=== PATIENT | male | born 1990 | race Hispanic/Latino ===

== ENCOUNTER 2017-02-28 09:26 | Observation (INO) | payer SELFPAY ==
[2017-02-28 09:32] VITALS: BMI 25.7
[2017-02-28] MEDS ORDERED: Sodium Chloride 0.9% 1,000 ML IV STA (10:28)
--- NOTE | 2017-02-28 10:50 | ED PDOC ---
HPI: General Adult Time Seen by Provider: 02/28/17 10:05 Chief Complaint (Nursing): Flu-like Symptoms History Per: Patient Additional Complaint(s): Pt. states since Sunday he's had a worsening cough productive associated with a gradual onset R sided headache. Reports headache is associated with nausea and non-bloody vomiting and light sensitivity. Also reports noticing atraumatic brusing on his stomach which is also not painful. Denies recent travel, sick contacts, sore throat, abdominal pain, head injury. Pt. was seen earlier today in [facility] but instructed to come to ED due to negative CXR and flu test. Also states he has been vaccinated for meningitis before. Past Medical History Reviewed: Historical Data, Nursing Documentation, Vital Signs Vital Signs: Last Vital Signs Temp 100.2 F H 02/28/17 12:20 Pulse 83 02/28/17 13:00 Resp 16 02/28/17 13:00 BP 113/63 02/28/17 13:00 Pulse Ox 97 02/28/17 15:04 - Surgical History Surgical History: Appendectomy - Family History Family History: Denies: CAD - Allergies Allergies/Adverse Reactions: Allergies Allergy/AdvReac Type Severity Reaction Status Date / Time No Known Allergies Allergy Verified 05/29/15 21:32 Review of Systems ROS Statement: Except As Marked, All Systems Reviewed And Found Negative Constitutional: Positive for: Fever Respiratory: Positive for: Cough Neurological: Positive for: Headache Physical Exam - Reviewed Nursing Documentation Reviewed: Yes Vital Signs Reviewed: Yes - Physical Exam Appears: Positive for: Well, Non-toxic, No Acute Distress Head Exam: Positive for: ATRAUMATIC, NORMAL INSPECTION, NORMOCEPHALIC Skin: Positive for: Normal Color, Warm. Negative for: Rash Eye Exam: Positive for: EOMI, Normal appearance, PERRL ENT: Positive for: Normal ENT Inspection Neck: Positive for: Normal, Painless ROM Cardiovascular/Chest: Positive for: Regular Rate, Rhythm Respiratory: Positive for: CNT, Normal Breath Sounds Gastrointestinal/Abdominal: Positive for: Normal Exam, Bowel Sounds, Soft, Other (minimal ecchymosis to RUQ). Negative for: Tenderness (to deep palpation) Back: Positive for: Normal Inspection Extremity: Positive for: Normal ROM Neurologic/Psych: Positive for: Alert, Oriented, Other (negative kernig's and brudzinski's test). Negative for: Aphasia, Facial Droop - Laboratory Results Result Diagrams: 02/28/17 10:57 02/28/17 10:57 - ECG O2 Sat by Pulse Oximetry: 97 Procedures - Time-Out Type of Procedure: Lumbar Puncture Site of Procedure: Lumbar area Correct Patient (with visual ID + MR# on ID Band): Yes Correct Procedure: Yes Correct Site Marked: Yes PA/Tech: Nathaniel ST - Additional Procedures Additional Procedures: lumbar puncture Progress: Lumbar puncture was performed under sterile procedures by Dr. Zaman and Nathaniel ST without incident. Initial fluid return was blood tinged likely due to trauma. Patient tolerated procedure well without incident. ED OBSERVATION Discharge: Yes Date of observation admission: 02/28/17 Time of observation admission: 10:51 - Observation admission statement Patient is being placed in observation because:: fever, headache - Progress Note Progress Note: 02/28/17 10:51 Case d/w Dr. Zaman. Pt. placed on isolation. Labs ordered. CT head w/o contrast ordered. Toradol 15mg IV, zofran 4mg IV, Tylenol 975mg PO given. 02/28/17 11:[address] Zaman. CXR: NAD CT head w/o contrast: negative 02/28/17 12:47 Dr. Zaman and la performed lumbar puncture without incident. Pt. tolerated procedure well. Pt. still c/o headache. 02/28/17 15:03 Dr. Zaman re-evaluated pt. and informed him of results. Still c/o headache. 02/28/17 15:15 Pt. offered 23 hr observation but prefers to go home. States he will return to ED if symptoms worsen or do not improve. Disposition d/w Dr. Zaman who agrees. Disposition - Clinical Impression Clinical Impression: Headache, Viral syndrome - Patient ED Disposition Is Patient to be Admitted: No - Disposition Disposition: Routine/Home Disposition Time: 15:18 Condition: STABLE
[2017-02-28 11:02] LABS: BASO % 0.4 % (0.0-2.0); EOS % 0.1 % (0.0-4.0); HEMOGLOBIN 13.2 g/dL (12.0-18.0); LYMPH # 1.2 K/uL (1.0-4.3); MEAN CORPUSCULAR HEMOGLOBIN 30.7 pg (27.0-31.0); MEAN CORPUSCULAR HGB CONC 33.7 g/dL (33.0-37.0); MEAN PLATELET VOLUME 8.8 fl (7.2-11.7); MONO # 1.7 K/uL (0.0-0.8); MONO % 12.4 % (0.0-10.0); NEUT # 10.5 K/uL (1.8-7.0); NEUT % 78.1 % (50.0-75.0); PLATELET COUNT 210 K/uL (130-400); RBC 4.31 Mil/uL (4.40-5.90); RED CELL DISTRIBUTION WIDTH 14.1 % (11.5-14.5); WHITE BLOOD COUNT 13.4 K/uL (4.8-10.8)
--- NOTE | 2017-02-28 11:03 | CT ---
PROCEDURE: CT HEAD WITHOUT CONTRAST. HISTORY: headache COMPARISON: None available. TECHNIQUE: Axial computed tomography images were obtained through the head/brain without intravenous contrast. Radiation dose: Total exam DLP = 881.34 MGy-cm. This CT exam was performed using one or more of the following dose reduction techniques: Automated exposure control, adjustment of the mA and/or kV according to patient size, and/or use of iterative reconstruction technique. FINDINGS: HEMORRHAGE: No intracranial hemorrhage. BRAIN: Leonardo-white matter differentiation is preserved. There is no mass, mass effect or abnormal extra-axial fluid collection. . VENTRICLES: The ventricles are normal in size, shape and configuration. CALVARIUM: The skull base and calvarium are normal. PARANASAL SINUSES: Predominantly clear. MASTOID AIR CELLS: Predominantly clear. OTHER FINDINGS: None. IMPRESSION: No acute intracranial abnormality.
[2017-02-28 11:12] LABS: ALB/GLOB RATIO 1.4 (1.0-2.1); ALBUMIN 4.6 g/dL (3.5-5.0); ALT/SGPT 55 U/L (21-72); AST/SGOT 32 U/L (17-59); BLOOD UREA NITROGEN 11 mg/dl (9-20); CALCIUM 9.4 mg/dL (8.4-10.2); GFR AFRICAN-AMERICAN > 60; GFR NON-AFRICAN AMERICAN > 60
[2017-02-28 11:14] LABS: VENOUS BLOOD GAS BASE EXCESS 3.5 mmol/L (0.0-2.0); VENOUS BLOOD GAS PCO2 40 mmHg (40-60); VENOUS BLOOD GAS PO2 24 mm/Hg (30-55); VENOUS BLOOD PH 7.45 (7.32-7.43)
[2017-02-28 11:23] LABS: INR 1.3 (0.9-1.2); PARTIAL THROMBOPLASTIN TIME 28.4 Seconds (25.6-37.1); PROTHROMBIN TIME 13.5 Seconds (9.8-13.1)
[2017-02-28 11:40] LABS: BANDS 1 % (0-2); BASOPHIL 1 % (0-2); LYMPHOCYTE 8 % (20-50); MONOCYTE 8 % (0-10); NEUTROPHIL 82 % (42-75); TOTAL CELLS COUNTED 100
[2017-02-28 11:41] LABS: PLATELET ESTIMATE NORMAL (NORMAL)
--- NOTE | 2017-02-28 11:46 | RAD ---
HISTORY: cough COMPARISON: 05/29/2015. FINDINGS: LUNGS: The lungs are well inflated and clear. PLEURA: No significant pleural effusion identified, no pneumothorax apparent. CARDIOVASCULAR: Normal. OSSEOUS STRUCTURES: No significant abnormalities. VISUALIZED UPPER ABDOMEN: Normal. OTHER FINDINGS: None. IMPRESSION: No active pulmonary disease.
[2017-02-28] MEDS ORDERED: cefTRIAXone 2 GM in Sodium Chloride 0.9% 100 ML IVPB SCH (13:00)
[2017-02-28 13:01] VITALS: RESP 16
[2017-02-28 13:19] LABS: FLUID TYPE SPINAL FLUID
[2017-02-28 13:26] LABS: CSF APPEARANCE CLEAR/COLORLESS (CLEAR)
[2017-02-28 13:28] LABS: CSF VOLUME 1 mL (0-1)
[2017-02-28 15:41] VITALS: BP 110/62; PULSE 89; TEMP 99.2; O2SAT 99
[2017-03-02 11:25] LABS: HSV 1 DNA Not Detected (Not Detected); HSV 2 DNA Not Detected (Not Detected); SPECIMEN SOURCE CSF
== END 2017-02-28 15:42 | disposition home or self-care (01) ==
LOC: H.ER 09:26 → H.EROBSV 10:28
PROVIDERS: ADMIT Emergency Medicine; ATTEND Emergency Medicine
DX: B34.9 Viral infection, unspecified (principal)
CPT/HCPCS: 62272; 70450; 71010; 80053; 82803; 82945; 84157; 85025; 85610; 85730; 86592; 86850; 86900; 87040; 87070; 87430; 87529; 87804; 89050; 96374; 96375; 99284; G0378; J0696; J1885; J2270; J2405; J7040

== ENCOUNTER 2017-03-01 07:48 | Observation (INO) | payer SELFPAY ==
[2017-03-01 07:48] VITALS: BMI 25.7
[2017-03-01 08:04] VITALS: RESP 16
[2017-03-01] MEDS ORDERED: Sodium Chloride 0.9% 1,000 ML IV STA (08:07)
--- NOTE | 2017-03-01 08:27 | ED PDOC ---
HPI: Headache Time Seen by Provider: 03/01/17 08:03 Chief Complaint (Nursing): Chest Pain Chief Complaint (Provider): Headache, Fever, Vomiting History Per: Patient History/Exam Limitations: no limitations Onset/Duration Of Symptoms: Days (x 4) Current Symptoms Are (Timing): Still Present Additional Complaint(s): Mahamed is a 26 y/o male who was well prior to Sunday morning but around 11AM developed fever, chills, nausea, headache, and fatigue. Went to urgent care, then sent to ED, was worked up in ED including lumbar puncture. Patient was discharged and states overnight symptoms have persisted and now worsened with headache, diarrhea, vomiting, and dizziness. Sunday he went to Urgent Care before coming to hospital. Currently taking Reglan and Naprosyn without relief. Denies sick contacts. No foreign travel. Patient lives with girlfriend who is not sick. Patient denies foreign travel, drug use, wooded or insect exposure. PMD: Unknown Past Medical History Reviewed: Historical Data, Nursing Documentation, Vital Signs Vital Signs: Last Vital Signs Temp 97 F L 03/01/17 07:58 Pulse 76 03/01/17 07:58 Resp 16 03/01/17 07:58 BP 110/53 L 03/01/17 07:58 Pulse Ox 99 03/01/17 07:58 - Medical History PMH: No Chronic Diseases - Surgical History Surgical History: Appendectomy - Family History Family History: Denies: CAD - Social History Current smoker - smoking cessation education provided: No Alcohol: Social Drugs: Denies - Home Medications Home Medications: Ambulatory Orders Medication Instructions Recorded Ondansetron [Zofran Tab] 4 mg PO Q6 PRN #20 tab 03/01/17 SUMAtriptan succinate [Imitrex Tab] 100 mg PO DAILY #5 tab 03/01/17 traMADol [Ultram] 50 mg PO Q6 PRN #10 tab 03/01/17 - Allergies Allergies/Adverse Reactions: Allergies Allergy/AdvReac Type Severity Reaction Status Date / Time No Known Allergies Allergy Verified 05/29/15 21:32 Review of Systems ROS Statement: Except As Marked, All Systems Reviewed And Found Negative Constitutional: Positive for: Fever, Chills, Weakness Gastrointestinal: Positive for: Nausea, Vomiting, Diarrhea Neurological: Positive for: Headache Physical Exam - Reviewed Nursing Documentation Reviewed: Yes Vital Signs Reviewed: Yes - Physical Exam Appears: Positive for: Non-toxic, No Acute Distress (Mildly dehydrated appearing ) Head Exam: Positive for: ATRAUMATIC, NORMAL INSPECTION, NORMOCEPHALIC Skin: Positive for: Normal Color, Warm, Dry. Negative for: Rash Eye Exam: Positive for: EOMI, Normal appearance, PERRL ENT: Positive for: Pharynx Is (unremarkable), TM Is/Are (unremarkable) Neck: Positive for: Normal, Painless ROM, Supple Cardiovascular/Chest: Positive for: Regular Rate, Rhythm. Negative for: Murmur Respiratory: Positive for: Normal Breath Sounds (Lungs clear bilaterally). Negative for: Accessory Muscle Use, Respiratory Distress Gastrointestinal/Abdominal: Positive for: Normal Exam, Soft. Negative for: Tenderness Back: Positive for: Normal Inspection. Negative for: Vertebral Tenderness Extremity: Positive for: Normal ROM. Negative for: Pedal Edema, Deformity Neurologic/Psych: Positive for: Alert, Oriented - Laboratory Results Result Diagrams: 03/01/17 08:23 03/01/17 08:23 - ECG ECG: Positive for: Interpreted By Me, Viewed By Me ECG Rhythm: Positive for: Sinus Rhythm (at 76 bpm). Negative for: ST/T Changes O2 Sat by Pulse Oximetry: 99 (RA) Pulse Ox Interpretation: Normal Medical Decision Making Medical Decision Making: Time: 08:07 Initial Plan: --Repeat blood work --EKG --Fluids --Zofran 4 mg IV --Toradol 15 mg IV --Recheck Chest X-Ray --Reevaluation Time: 09:31 --Total creatinine kinase Time: 09:52 --Dextrose 5% 1000 ml IV at 1000 mls/hr Time: 10:21 --Patient describes symptoms as "worst headache of his life" --Records reviewed, RBC in CSF during lumbar puncture on 02/28/17 --Ordered CT Angio Head -patient stated his headache is "worst of my life"- not positional, does not worsen with sitting upright therefore less likely post LP headache. CTA brain normal per radiologist Dr Saul Time: 11:27 --Reglan 10 mg IV Time: 11:39 --Rapid HIV serology - neg Time: 13:205- patient placed briefly into ED Obs then stated Headache was worsening and had episode vomit, hence upgraded to med surg obs given recurrent ED visits, failure of outpatient therapy, worsening headache, Admit to obs hospitalist for headache, vomiting, dehydration. Care transferred to Dr Zaragoza. --Dr. Maira Zaragoza saw patient in ER and provided disposition Scribe Attestation: Documented by Yas Sparrow, acting as a scribe for Bhavesh Lim III, DO Provider Scribe Attestation: All medical record entries made by the Scribe were at my direction and personally dictated by me. I have reviewed the chart and agree that the record accurately reflects my personal performance of the history, physical exam, medical decision making, and the department course for this patient. I have also personally directed, reviewed, and agree with the discharge instructions and disposition. Disposition - Clinical Impression Clinical Impression: Headache, Dehydration - Patient ED Disposition Is Patient to be Admitted: Yes Counseled Patient/Family Regarding: Studies Performed, Diagnosis - Disposition Disposition Time: 13:05 Condition: GOOD
[2017-03-01 08:33] LABS: VENOUS BLOOD GAS BASE EXCESS 2.2 mmol/L (0.0-2.0); VENOUS BLOOD GAS PCO2 33 mmHg (40-60); VENOUS BLOOD PH 7.49 (7.32-7.43)
[2017-03-01 08:36] LABS: BASO # 0.1 K/uL (0.0-0.2); BASO % 0.5 % (0.0-2.0); EOS % 0.4 % (0.0-4.0); HEMATOCRIT 38.5 % (35.0-51.0); LYMPH # 1.2 K/uL (1.0-4.3); LYMPH % 10.5 % (20.0-40.0); MEAN CELL VOLUME 90.3 fl (80.0-94.0); MEAN CORPUSCULAR HEMOGLOBIN 30.4 pg (27.0-31.0); MEAN CORPUSCULAR HGB CONC 33.7 g/dL (33.0-37.0); MEAN PLATELET VOLUME 8.1 fl (7.2-11.7); MONO # 1.3 K/uL (0.0-0.8); NEUT # 8.9 K/uL (1.8-7.0); NEUT % 77.6 % (50.0-75.0); RED CELL DISTRIBUTION WIDTH 13.7 % (11.5-14.5); WHITE BLOOD COUNT 11.5 K/uL (4.8-10.8)
[2017-03-01 08:40] LABS: URINE BACTERIA OCC (<OCC); URINE BILIRUBIN MODERATE (NEGATIVE); URINE BLOOD NEGATIVE (NEGATIVE); URINE COLOR AMBER (YELLOW); URINE GLUCOSE (UA) NEG (Normal); URINE KETONE 80 mg/dL (NEGATIVE); URINE LEUKOCYTE ESTERASE NEG Leu/uL (Negative); URINE PROTEIN 100 mg/dL (NEGATIVE); WBC URINE 24 /hpf (0-5)
[2017-03-01 08:43] LABS: RBC URINE 5 /hpf (0-3)
[2017-03-01 08:44] LABS: ALB/GLOB RATIO 1.3 (1.0-2.1); ALKALINE PHOSPHATASE 67 U/L (38-126); ALT/SGPT 51 U/L (21-72); AST/SGOT 25 U/L (17-59); BILIRUBIN,TOTAL 0.7 mg/dl (0.2-1.3); BLOOD UREA NITROGEN 9 mg/dl (9-20); CALCIUM 9.2 mg/dL (8.4-10.2); CARBON DIOXIDE 22 mmol/L (22-30); CHLORIDE 104 mmol/L (98-107); GFR AFRICAN-AMERICAN > 60; GLUCOSE,RANDOM 109 mg/dL (75-110); POTASSIUM 3.6 MMOL/L (3.6-5.0); SODIUM 140 mmol/l (132-148); TOTAL PROTEIN 7.7 G/DL (6.3-8.2)
[2017-03-01] MEDS ORDERED: Dextrose 5%/Lactated Ringer's 1,000 ML IV SCH (10:00)
[2017-03-01] MEDS ORDERED: Sodium Chloride 0.9% 50 ML IV ONE (10:35)
[2017-03-01] MEDS ORDERED: Iodixanol 320 MG/ML 100 ML BOTTLE IV ONE (10:35)
[2017-03-01] MEDS ORDERED: DiphenhydrAMINE 50 mg/ml Inj IVP STA (12:32)
[2017-03-01] MEDS ORDERED: DiphenhydrAMINE 50 mg/ml Inj ONE (12:35)
--- NOTE | 2017-03-01 14:12 | CT ---
PROCEDURE: CT Angiography of the Brain. HISTORY: worst headache of life, RBC in CSF COMPARISON: None available. TECHNIQUE: CT angiography of the intracranial arteries was performed. Coronal and sagittal maximum intensity projection reformated images were generated. This CT exam was performed using one or more of the following dose reduction techniques: Automated exposure control, adjustment of the mA and/or kV according to patient size, and/or use of iterative reconstruction technique. Total exam DLP: 1106.46 FINDINGS: INTERNAL CEREBRAL ARTERIES: Unremarkable. The skull base, petrous, cavernous and supraclinoid segments are bilaterally widely patient. ANTERIOR CEREBRAL ARTERIES: Unremarkable. A1 and A2 segments are widely patent. Smaller distal branches unremarkable, as visualized. MIDDLE CEREBRAL ARTERIES: Unremarkable. M1 and M2 segments are widely patent. Perisylvian branches grossly symmetric. POSTERIOR CIRCULATION: Basilar Artery: Unremarkable. Distal Vertebral Arteries: Unremarkable. Posterior Cerebral Arteries: Unremarkable. Posterior Inferior Cerebellar Arteries: Unremarkable. ANEURYSM/ VASCULAR MALFORMATIONS: None. OTHER FINDINGS: None. IMPRESSION: Unremarkable CT Angiography of the Brain.
[2017-03-01 14:17] VITALS: BP 108/64; PULSE 82; TEMP 98.4
[2017-03-01 15:12] VITALS: O2SAT 99
--- NOTE | 2017-03-01 15:13 | CP.PCM.HP ---
History of Present Illness - History of Present Illness History of Present Illness: CC: HEADACHE HPI: This is a 26-year-old male with no past medical history presenting to the ER for the second time in 2 days with severe right sided frontal headache, which is constant and associated with nausea, dizziness. He is also experiencing photophobia, and sensitivity to noises. He experienced fever and chills and fatigue 4 days ago, however this is resolved. In the ER yesterday patient was worked up, white count was 13,000, lumbar puncture was negative, CT head was negative, and patient was flu negative strep negative and blood cultures were also negative. Today in the emergency room patient had a CTA of his head which was also negative, CSF culture was negative as well. Today white count is improved to 11.5 chemistry is unremarkable, and patient is hemodynamically stable. Patient is likely suffering from a migraine headache, for which he was given Imitrex in the emergency room. He was also given Zofran for nausea. Patient to be discharged home with Imitrex, Zofran, and a 3 day supply of Ultram. He was also provided with a note for work to return on Sunday. Patient is hemodynamically stable, and is to follow up with his primary care physician as well as neurologist .. Review of systems per HPI all other systems reviewed and negative by me Past medical history none Past surgical history none Family history none Social history denies tobacco, alcohol, IV drug use Medications no home medications No known drug allergies Vitals reviewed and stable Gen: WDWN, cooperative, alert HEENT: NCAT, PERRL, EOMI, no erythema, exudates, gross hearing intact, no lesions Neck: Soft, supple, no lymphadenopathy, no JVD Heart: +S1S2, RRR, No MRG Lung: CTAB, No WRR Abd: soft, NT, ND, BSx4, no HSM, no masses Ext: warm, well perfused, pedal pulses intact Neuro: AAOx3, Strength equal bilaterally UE/LE Skin: Warm, Dry, no rash Psych: Normal mood, affect with appropriate range Labs Most Recent Lab Values WBC 11.5 K/uL (4.8-10.8) H 03/01/17 08:23 RBC 4.26 Mil/uL (4.40-5.90) L 03/01/17 08:23 Hgb 13.0 g/dL (12.0-18.0) 03/01/17 08:23 Hct 38.5 % (35.0-51.0) 03/01/17 08:23 MCV 90.3 fl (80.0-94.0) 03/01/17 08:23 MCH 30.4 pg (27.0-31.0) 03/01/17 08:23 MCHC 33.7 g/dL (33.0-37.0) 03/01/17 08:23 RDW 13.7 % (11.5-14.5) 03/01/17 08:23 Plt Count 204 K/uL (130-400) 03/01/17 08:23 MPV 8.1 fl (7.2-11.7) 03/01/17 08:23 Neut % (Auto) 77.6 % (50.0-75.0) H 03/01/17 08:23 Lymph % (Auto) 10.5 % (20.0-40.0) L 03/01/17 08:23 [place] % (Auto) 11.0 % (0.0-10.0) H 03/01/17 08:23 Eos % (Auto) 0.4 % (0.0-4.0) 03/01/17 08:23 Baso % (Auto) 0.5 % (0.0-2.0) 03/01/17 08:23 Neut # 8.9 K/uL (1.8-7.0) H 03/01/17 08:23 Lymph # 1.2 K/uL (1.0-4.3) 03/01/17 08:23 [place] # 1.3 K/uL (0.0-0.8) H 03/01/17 08:23 Eos # 0.0 K/uL (0.0-0.7) 03/01/17 08:23 Baso # 0.1 K/uL (0.0-0.2) 03/01/17 08:23 pO2 25 mm/Hg (30-55) L 03/01/17 08:25 VBG pH 7.49 (7.32-7.43) H 03/01/17 08:25 VBG pCO2 33 mmHg (40-60) L 03/01/17 08:25 VBG HCO3 25.4 mmol/L 03/01/17 08:25 VBG Total CO2 26.1 mmol/L (22-28) 03/01/17 08:25 VBG O2 Sat (Calc) 57.8 % (40-65) 03/01/17 08:25 VBG Base Excess 2.2 mmol/L (0.0-2.0) H 03/01/17 08:25 VBG Potassium 3.5 mmol/L (3.6-5.2) L 03/01/17 08:25 Sodium 136.0 mmol/L (132-148) 03/01/17 08:25 Chloride 104.0 mmol/L (98-107) 03/01/17 08:25 Glucose 111 mg/dL (75-110) H 03/01/17 08:25 Lactate 1.4 mmol/L (0.7-2.1) 03/01/17 08:25 FiO2 21.0 % 03/01/17 08:25 Sodium 140 mmol/l (132-148) 03/01/17 08:23 Potassium 3.6 MMOL/L (3.6-5.0) 03/01/17 08:23 Chloride 104 mmol/L (98-107) 03/01/17 08:23 Carbon Dioxide 22 mmol/L (22-30) 03/01/17 08:23 Anion Gap 18 (10-20) 03/01/17 08:23 BUN 9 mg/dl (9-20) 03/01/17 08:23 Creatinine 0.9 mg/dL (0.8-1.5) 03/01/17 08:23 Est GFR ( Amer) > 60 03/01/17 08:23 Est GFR (Non-Af Amer) > 60 03/01/17 08:23 Random Glucose 109 mg/dL (75-110) 03/01/17 08:23 Calcium 9.2 mg/dL (8.4-10.2) 03/01/17 08:23 Total Bilirubin 0.7 mg/dl (0.2-1.3) 03/01/17 08:23 AST 25 U/L (17-59) 03/01/17 08:23 ALT 51 U/L (21-72) 03/01/17 08:23 Alkaline Phosphatase 67 U/L (38-126) 03/01/17 08:23 Total Creatine Kinase 82 U/L (55-170) 03/01/17 08:23 Troponin I 0.0210 ng/mL (0.00-0.120) 03/01/17 08:23 Total Protein 7.7 G/DL (6.3-8.2) 03/01/17 08:23 Albumin 4.3 g/dL (3.5-5.0) 03/01/17 08:23 Globulin 3.4 gm/dL (2.2-3.9) 03/01/17 08:23 Albumin/Globulin Ratio 1.3 (1.0-2.1) 03/01/17 08:23 Venous Blood Potassium 3.5 mmol/L (3.6-5.2) L 03/01/17 08:25 Urine Color Judith (YELLOW) 03/01/17 08:29 Urine Clarity Cloudy (Clear) 03/01/17 08:29 Urine pH 5.0 (5.0-8.0) 03/01/17 08:29 Ur Specific [place] 1.048 (1.003-1.030) H 03/01/17 08:29 Urine Protein 100 mg/dL (NEGATIVE) 03/01/17 08:29 Urine Glucose (UA) Neg mg/dL (Normal) 03/01/17 08:29 Urine Ketones 80 mg/dL (NEGATIVE) 03/01/17 08:29 Urine Blood Negative (NEGATIVE) 03/01/17 08:29 Urine Nitrate Negative (NEGATIVE) 03/01/17 08:29 Urine Bilirubin Moderate (NEGATIVE) 03/01/17 08:29 Urine Urobilinogen 4.0 mg/dL (0.2-1.0) 03/01/17 08:29 Ur Leukocyte Esterase Neg Bashir/uL (Negative) 03/01/17 08:29 Urine RBC (Auto) 5 /hpf (0-3) H 03/01/17 08:29 Urine Microscopic WBC 24 /hpf (0-5) H 03/01/17 08:29 Ur Squamous Epith Cells < 1 /hpf (0-5) 03/01/17 08:29 Urine Bacteria Occ (<OCC) H 03/01/17 08:29 HIV-1 Ab Rapid Screen Non reactive (NON REAC) 03/01/17 12:[address] head negative CT angiogram of head also negative Medications Allergies No Known Allergies Allergy (Verified 05/29/15 21:32) Height & Weight Height 6 ft Weight 190 lb Start Date/Time Active Medications 03/01/17 10:00 Dextrose 5%/Lactated Ringer's 1,000 ml IV 1,000 mls/hr 03/01/17 14:04 Ondansetron [Zofran Tab] 4 mg PO Q6 PRN traMADol [Ultram] 50 mg PO Q6 PRN Assessment and plan This is a 26-year-old male with no past medical history presenting to the ER for the second time in 2 days with severe right sided frontal headache, which is constant and associated with nausea, dizziness. He is also experiencing photophobia, and sensitivity to noises. He experienced fever and chills and fatigue 4 days ago, however this is resolved. In the ER yesterday patient was worked up, white count was 13,000, lumbar puncture was negative, CT head was negative, and patient was flu negative strep negative and blood cultures were also negative. Today in the emergency room patient had a CTA of his head which was also negative, CSF culture was negative as well. Today white count is improved to 11.5 chemistry is unremarkable, and patient is hemodynamically stable. Patient is likely suffering from a migraine headache, for which he was given Imitrex in the emergency room. He was also given Zofran for nausea. Patient to be discharged home with Imitrex, Zofran, and a 3 day supply of Ultram. He was also provided with a note for work to return on Sunday. Patient is hemodynamically stable, and is to follow up with his primary care physician as well as neurologist . Patient to be discharged home in stable condition with Imitrex, Zofran, Ultram. To follow up with PCP and Neurology Dr. Lopez for Migraine Headaches. Present on Admission - Present on Admission Any Indicators Present on Admission: No Past Patient History - Infectious Disease Hx of Infectious Diseases: None - Past Social History Alcohol: Social Drugs: Denies - HEMATOLOGICAL/ONCOLOGICAL Other/Comment: MRSA - PSYCHIATRIC Hx Substance Use: No - SURGICAL HISTORY Hx Appendectomy: Yes Meds Home Medications: Home Medication List Medication Instructions Recorded Confirmed Type Ondansetron [Zofran Tab] 4 mg PO Q6 PRN #20 tab 03/01/17 Rx SUMAtriptan succinate [Imitrex Tab] 100 mg PO DAILY #5 tab 03/01/17 Rx traMADol [Ultram] 50 mg PO Q6 PRN #10 tab 03/01/17 Rx Allergies/Adverse Reactions: Allergies Allergy/AdvReac Type Severity Reaction Status Date / Time No Known Allergies Allergy Verified 05/29/15 21:32 Results - Vital Signs Recent Vital Signs: Last Vital Signs Temp 98.4 F 03/01/17 14:15 Pulse 82 03/01/17 14:15 Resp 16 03/01/17 14:15 BP 108/64 03/01/17 14:15 Pulse Ox 100 03/01/17 14:15 - Labs Result Diagrams: 03/01/17 08:23 03/01/17 08:23
--- NOTE | 2017-03-01 15:39 | RAD ---
HISTORY: worsening cough, chest pain, fever COMPARISON: Chest x-ray performed 02/28/17 TECHNIQUE: Chest PA and lateral FINDINGS: LUNGS: Subtle retrocardiac opacity may reflect pneumonia. Please note that chest x-ray has limited sensitivity for the detection of pulmonary masses. PLEURA: No significant pleural effusion identified. No definite pneumothorax . CARDIOVASCULAR: The cardiomediastinal silhouette appears within normal limits of size. OSSEOUS STRUCTURES: No acute osseous abnormality identified. VISUALIZED UPPER ABDOMEN: Unremarkable. OTHER FINDINGS: None. IMPRESSION: Subtle retrocardiac opacity may reflect pneumonia. Study has been marked for PA review.
--- NOTE | 2017-03-01 16:53 | CARD ---
APPROVED REPORT EKG Measurement Heart [id number] [id number] <Conclusion> Normal sinus rhythm Normal ECG
== END 2017-03-01 14:36 | disposition home or self-care (01) ==
LOC: H.ER 07:48 → H.EROBSV 13:05 → H.ERHOLD 13:22
PROVIDERS: ADMIT Student in an Organized Health Care Education/Training Program; ATTEND Student in an Organized Health Care Education/Training Program
DX: G43.909 Migraine, unspecified, not intractable, without status migrainosus (principal); E86.0 Dehydration; Z90.49 Acquired absence of other specified parts of digestive tract
CPT/HCPCS: 70496; 71020; 80053; 81003; 82550; 82803; 84484; 85025; 87390; 93005; 96372; 96374; 96375; 99282; G0378; J1200; J1885; J2405; J2765; J3030; J7040; J7120; Q9967